=== PATIENT | male | born 1940 | race Caucasian/White ===

== ENCOUNTER → 2017-10-24 | Outpatient (CLI) | payer OTHER ==
[~2017-10-24] MED LIST: ADULT LOW DOSE81 M1 PO; FLOMAX0.4 MG PO; GLUCOPHAGE1000 MG PO; GLUCOTROL10 MG PO; LOPRESSOR25 MG PO; RAPAFLO8 MG PO; VASOTEC20 MG PO; ZOCOR40 MG PO
== END | disposition home or self-care (01) ==
LOC: RAD 09:29
DX: N28.1 Cyst of kidney, acquired (principal); Z85.46 Personal history of malignant neoplasm of prostate
CPT/HCPCS: 74177